=== PATIENT | female | born 1995 | race Caucasian/White ===

== ENCOUNTER → 2022-10-11 13:30 | Outpatient (BNV) | payer BC, SELFPAY | PROVIDERS: Visit Provider Psychiatry & Neurology Psychiatry | DX: F32.2 Major depressive disorder, single episode, severe without psychotic features (principal) | CPT/HCPCS: 90792; 99212; 99213; 99214 ==

== ENCOUNTER 2022-11-01 12:45 | Outpatient (RCR) | payer BC, SELFPAY ==
[2022-10-11 10:50] VITALS: BP 129/88; PULSE 78; TEMP 37
[2022-10-11 10:54] VITALS: BMI 29.9
--- NOTE | 2022-10-11 11:29 | PC.ADMIT ---
Patient is a 26 year old non-binary individual who uses He/They Pronouns and uses the name Scott. They were referred by inpatient behavioral health unit at [facility] where they were admitted d/t increase in depression with SI and plan to overdose on medications. Patient unable to identify any triggers prior to hospitalization. Patient stated the hospitalization was helpful. They currently report their mood is up and down and feeling overwhelmed. Reports experiencing fleeting passive SI, denied any plans of intent, denied SI currently. Patient given a copy of their safety plan if needed and I reviewed the plan with them. Patient is alert and oriented x4. Calm, cooperative, engaging. Medications reconciled with patient and patient's discharge paperwork. Patient reports taking medications as prescribed. Temporarily living with mother and sister as they live closer to the [facility] program as Scott lives in [place], [place]. They are currently on a leave of absence from work.
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
--- NOTE | 2022-10-15 13:25 | PC.NURSE ---
Patient asked for assistance with finding a new PCP in [facility]. Patient was present with me in my office while making the appointment. New PCP appointment at [facility]. Office # [phone]. December at 10:[address] [place] [address]. with Anamaria Barr. Complete paperwork online prior to appointment at [email or web address].
--- NOTE | 2022-10-17 13:21 | HO.PHPPROGNO ---
Subjective Subjective Date of Service: 10/17/22 Reason For Visit: depression w/SI Interim History: pt reports tolerating wellbutrin SR 200 mg daily without side effects; no significant benefit as of yet; they report not sleeping well with frequent nightmares- reports nightmares for a long time- not a new symptoms; we discussed prazosin for nightmares- reviewed risk, benefits and expected outcome; pt agrees to trial of prazoson 1 mg at bedtime; pt also reports feeling irritable and easily frustratede at times but says she has felt that way off and on for a long time; advised to monitor it and see if it gets better over next week with higher dose wellbutrin. no SI or HI. feels groups are benefit. Medication Compliance: Yes Side effects from medications: No Attending Groups: Yes Review of Systems Acute medical concerns: No Medical Review of Systems: unchanged Review of Systems Review of Systems no change Mental Status Exam Mental Status Exam Narrative: pleasant. Engaged. Well presented. Organized. Affect is with more range; good eye contact; mood bright; No SI. No HI. No agitation or psychosis. Insight and judgment good Diagnostics Vital Signs (24Hr): BMI result Body Mass Index 29.9 Assessment & Plan Assessment & Plan (1) Major depressive disorder, severe: Status: Acute Code(s): F32.2 - Major depressive disorder, single episode, severe without psychotic features Plan Assessment: presents with major depression, recent inpatient stay in the context of suicidal ideation with plan. Has shown a response to Wellbutrin and is tolerating the increase to 200mg daily. Has not been suicidal since discharge from the hospital but does continue to have depressive symptoms that are troublesome and bothering. pt reporting longstanding nightmares and agree to trial of prazosin. plan: continue wellbutrin sr 200mg start prazosin 1mg at bedtime continue php groups per protocol Patient educated on: diagnosis, medication risk/benefits and therapeutic strategies Informed Consent: understands Reason for contiued partial hosp. stay Substantial Risk for: harm to self, inability to function and rapid decompensation Certification I certify that partial hospital treatment is medically necessary due to the symptoms and problems resulting from the patient's mental illness and the failure to treat the patient at the partial hospital level of care would likely result in the patient requiring inpatient psychiatric care which could not be prevented at a less intensive level of care. Total time managing care of this patient today ____ minutes. Discharge Plan Discharge Attending provider: Braxton Walters Additional Instructions: New PCP appointment at [facility]. Office # [phone]. December at 10:[address] [place] [address]. with Anamaria Barr. Complete paperwork online prior to appointment at [facility]. Medications: New bupropion HCl [Wellbutrin SR] 100 mg tablet sustained-release 12 hr 100 mg PO BID 7 Days Qty: 14 0RF Rx Instructions: DOSE CHANGE prazosin 1 mg capsule 1 mg PO BEDTIME Qty: 14 0RF bupropion HCl [Wellbutrin SR] 100 mg tablet sustained-release 12 hr 100 mg PO BID Qty: 14 0RF No Action testosterone 1.62 % (20.25 mg/1.25 gram) gel in packet 1 packet transdermal DAILY Stand Alone Forms: Patient Portal Discharge page
--- NOTE | 2022-10-18 08:10 | HO.PHP ---
The client case was reviewed and opened in treatment team.
--- NOTE | 2022-10-25 09:27 | P.PNPSP_ITS ---
Subjective Subjective Date of Service: 10/25/22 Reason For Visit: depression w/SI Healthcare Proxy: No Guardianship: No Interim History: Scott is seen for follow-up. They have been started on Wellbutrin SR 100 mg b.i.d. and recently prazosin 1 mg was added for nightmares which has been tolerated with no side effects but no benefits. I will have her increase it to 2 mg for several nights and if it is not still effective they will try 3 mg. Issues of orthostasis discussed. No other changes were made Medication Compliance: Yes Side effects from medications: No Attending Groups: Yes Review of Systems Review of Systems Yes all other systems are reviewed and are negative Mental Status Exam Mental Status Exam Narrative: In today's visit they are well kempt, pleasant. Normal speech. Good eye contact. Affect is appropriate and varied. No signs of psychosis. No SI. Cognitively intact. Judgment is intact Diagnostics Vital Signs (24Hr): BMI result Body Mass Index 29.9 Assessment & Plan Assessment & Plan (1) Major depressive disorder, severe: Status: Acute Code(s): F32.2 - Major depressive disorder, single episode, severe without psychotic features Plan Continue Wellbutrin SR and increase prazosin to 2-3 mg Certification I certify that partial hospital treatment is medically necessary due to the symptoms and problems resulting from the patient's mental illness and the failure to treat the patient at the partial hospital level of care would likely result in the patient requiring inpatient psychiatric care which could not be prevented at a less intensive level of care. Total time managing care of this patient today ____ minutes. Discharge Plan Discharge Attending provider: Braxton Walters Additional Instructions: New PCP appointment at [facility]. Office # [phone]. December at 10:[address] [place] [address]. with Anamaria Barr. Complete paperwork online prior to appointment at [email or web address]. Medications: New prazosin 1 mg capsule 1 mg PO BEDTIME Qty: 14 0RF bupropion HCl [Wellbutrin SR] 100 mg tablet sustained-release 12 hr 100 mg PO BID Qty: 14 0RF prazosin 2 mg capsule 2 mg PO BEDTIME Qty: 14 0RF Continued bupropion HCl [Wellbutrin SR] 100 mg tablet sustained-release 12 hr 100 mg PO BID 14 Days Qty: 28 0RF Rx Instructions: DOSE CHANGE No Action testosterone 1.62 % (20.25 mg/1.25 gram) gel in packet 1 packet transdermal DAILY Stand Alone Forms: Patient Portal Discharge page Patient Education: Depression (DC)
--- NOTE | 2022-11-01 09:37 | HO.PHPPROGNO ---
Subjective Subjective Date of Service: 11/01/22 Reason For Visit: depression w/SI Interim History: Abby is seen in follow-up prior to her discharge today. She talked about the program which was ?life saving?. She does have an appointment with a therapist at [facility] and will be getting a prescriber there. Current medications were individually reviewed and a 1 month prescription for Wellbutrin and prazosin with a refill were sent. The prazosin has been very helpful with her sleep and nightmares and denies any side effects. Review of Systems Review of Systems Yes all other systems are reviewed and are negative Mental Status Exam Mental Status Exam Narrative: In today's visit they are well kempt, pleasant. Normal speech. Good eye contact. Affect is appropriate and varied. No signs of psychosis. No SI. Cognitively intact. Judgment is intact Diagnostics Vital Signs (24Hr): BMI result Body Mass Index 29.9 Assessment & Plan Assessment & Plan (1) Major depressive disorder, severe: Status: Acute Code(s): F32.2 - Major depressive disorder, single episode, severe without psychotic features Plan Patient is ending the program today and will be followed at [facility] Patient educated on: medication risk/benefits Certification I certify that partial hospital treatment is medically necessary due to the symptoms and problems resulting from the patient's mental illness and the failure to treat the patient at the partial hospital level of care would likely result in the patient requiring inpatient psychiatric care which could not be prevented at a less intensive level of care. Total time managing care of this patient today ____ minutes. Discharge Plan Discharge Attending provider: Braxton Walters Additional Instructions: New PCP appointment at [facility]. Office # [phone]. December at 10:[address] [place] [address]. with Anamaria Barr. Complete paperwork online prior to appointment at [email or web address]. Medications: New prazosin 1 mg capsule 1 mg PO BEDTIME Qty: 14 0RF bupropion HCl 100 mg tablet sustained-release 12 hr 100 mg PO BID Qty: 60 1RF Continued bupropion HCl [Wellbutrin SR] 100 mg tablet sustained-release 12 hr 100 mg PO BID 30 Days Qty: 60 1RF Rx Instructions: DOSE CHANGE prazosin 2 mg capsule 2 mg PO BEDTIME Qty: 30 1RF bupropion HCl [Wellbutrin SR] 100 mg tablet sustained-release 12 hr 100 mg PO BID Qty: 60 1RF No Action testosterone 1.62 % (20.25 mg/1.25 gram) gel in packet 1 packet transdermal DAILY Stand Alone Forms: Patient Portal Discharge page Patient Education: Depression (DC), Anxiety (GEN)
--- NOTE | 2022-11-04 08:36 | HO.PHP ---
A referral was faxed to [facility] 11/01 for out patient therapist and prescriber.
== END 2022-11-01 23:59 | disposition home or self-care (01) ==
LOC: HO.PHPA 12:45
PROVIDERS: Visit Provider Psychiatry & Neurology Psychiatry
DX: F32.2 Major depressive disorder, single episode, severe without psychotic features (principal); Z79.899 Other long term (current) drug therapy
CPT/HCPCS: 90791; 90853